=== PATIENT | male | born 1955 | race Caucasian/White ===

== ENCOUNTER 2016-11-23 21:09 | Emergency (ER) | payer OTHER ==
[~2016-11-23 21:09] MED LIST: APAP/HYDROCODON1 T13 PO; COL100 PO; FLO4 PO; LAC PO; LEVAQUIN750 MG PO; LEXAPRO20 MG PO; MOTRIN800 MG PO
[2016-11-23 22:17] LABS: BASOPHIL % 0.3 % (0-2); PLATELET COUNT 201 x10^3mcL (130-400)
[2016-11-23 22:52] LABS: CARBON DIOXIDE 23.6 mmol/L (21-32); CHLORIDE SERUM 108 mmol/L (98-107); CREATININE SERUM 0.9 mg/dL (0.7-1.3); GFR1 > 60 mL/min; GLUCOSE SERUM 114 mg/dL (74-106); POTASSIUM SERUM 3.7 mmol/L (3.5-5.1); SODIUM SERUM 143 mmol/L (136-145)
[2016-11-23 23:08] LABS: ALBUMIN 3.7 g/dL (3.4-5.0); ALKALINE PHOSPHATASE 88 U/L (46-116); ALT/SGPT 43 U/L (16-63); AMYLASE 41 U/L (25-115); AST/SGOT 34 U/L (15-37); BILIRUBIN TOTAL 0.74 mg/dL (0.20-1.00); CK-MB 0.5 ng/mL (0-3.6); LIPASE 147 IU/L (73-393); TOTAL PROTEIN, SERUM 6.9 g/dL (6.4-8.2)
[2016-11-23 23:43] LABS: microscopic required? YES; urine erythrocyte 3+ (NEGATIVE)
[2016-11-24 00:52] VITALS: BP 121/74
== END 2016-11-24 00:52 | disposition home or self-care (01) ==
LOC: ED 21:09
PROVIDERS: Emergency Medicine
DX: N23 Unspecified renal colic (principal); F99 Mental disorder, not otherwise specified; F32.9 Major depressive disorder, single episode, unspecified; Z79.899 Other long term (current) drug therapy; Z91.010 Allergy to peanuts
CPT/HCPCS: J1885; Q0092

== ENCOUNTER 2017-10-16 17:51 | Emergency (ER) | payer OTHER ==
[~2017-10-16] VITALS: Ht 180.3 cm; Wt 83.9 kg
[2017-10-16 17:56] VITALS: Ht 180.3 cm; Wt 83.9 kg
[2017-10-16 18:39] LABS: UA SPECIFIC GRAVITY 1.025 (1.005-1.035); microscopic required? YES; urine erythrocyte 3+ (NEGATIVE)
[2017-10-16 18:57] LABS: BASOPHIL % 0.1 % (0-2); PLATELET COUNT 164 x10^3mcL (130-400); RED CELL DISTRIBUTION WIDTH 13.3 % (11.5-14.5)
[2017-10-16 19:02] LABS: CARBON DIOXIDE 25.4 mmol/L (21-32); CHLORIDE SERUM 106 mmol/L (98-107); GFR1 > 60 mL/min; GLUCOSE SERUM 106 mg/dL (74-106); POTASSIUM SERUM 3.3 mmol/L (3.5-5.1); SODIUM SERUM 141 mmol/L (136-145)
[2017-10-16 19:06] LABS: ALBUMIN 3.5 g/dL (3.4-5.0); ALKALINE PHOSPHATASE 82 U/L (46-116); ALT/SGPT 28 U/L (16-63); AMYLASE 33 U/L (25-115); AST/SGOT 20 U/L (15-37); BILIRUBIN TOTAL 0.7 mg/dL (0.20-1.00); LIPASE 124 IU/L (73-393); TOTAL PROTEIN, SERUM 6.9 g/dL (6.4-8.2)
[2017-10-16 21:16] VITALS: BP 126/77
== END 2017-10-16 21:37 | disposition home or self-care (01) ==
LOC: ED 17:51
PROVIDERS: Specialist
DX: N13.2 Hydronephrosis with renal and ureteral calculous obstruction (principal); L30.9 Dermatitis, unspecified
CPT/HCPCS: 36415